=== PATIENT | female | born 1995 | race African-American/Black ===

== ENCOUNTER 2025-03-25 13:28 | Emergency (ER) | payer SELFPAY ==
[2025-03-25] MEDS ORDERED: HYDROcodone/Acetaminophen 5/325 mg Tablet ONE (14:23)
== END 2025-03-25 14:30 | disposition home or self-care (01) ==
LOC: CSHERS 13:28
DX: K08.89 Other specified disorders of teeth and supporting structures (principal); F17.290 Nicotine dependence, other tobacco product, uncomplicated
CPT/HCPCS: 99282